=== PATIENT | male | born 1965 | race Hispanic/Latino ===

== ENCOUNTER 2021-01-20 02:40 | Observation (INO) | payer SELFPAY ==
[2021-01-20] MEDS ORDERED: Acetaminophen 500 MG TAB PO PRN (03:09)
[2021-01-20 03:20] VITALS: BMI 30.7
[2021-01-20 06:43] LABS: #Basophils 0.1 thou/uL (0.0-0.2); #Eosinphils 0.2 thou/uL (0.0-0.7); #Lymphocytes 1.8 thou/uL (1.20-3.40); #Monocytes 0.5 thou/uL (0.11-0.59); #Neutrophils 3.1 thou/uL (1.40-6.50); %Basophils 0.9 % (0.0-1.0); %Eosinophils 3.8 % (0.0-10.0); %Lymphocytes 31.6 % (21.0-51.0); %Monocytes 8.9 % (0.0-10.0); %Neutrophils 54.8 % (42.0-75.0); Hemoglobin 8.7 g/dL (14.0-18.0); Mean Corpuscular Hemoglobin 26.5 pg (27.0-31.0); Mean Corpuscular Volume 85.5 fL (78.0-98.0); Mean Platelet Volume 8.2 fL (7.4-10.4); Platelet Count 150 thou/uL (130-400); RBC Distribution Width 18.2 % (11.5-14.5); Red Blood Cell (RBC) Count 3.29 mill/uL (4.70-6.10); White Blood Cell (WBC) Count 5.7 thou/uL (4.8-10.8)
[2021-01-20 06:53] LABS: INR-International Normal Ratio 1.8; Prothrombin Time 20.9 sec (12.0-14.7)
[2021-01-20 07:07] LABS: Anion Gap 7 mmol/L (10-20); BUN (Urea Nitrogen) 10 mg/dL (8.4-25.7); Calc. Creatinine Clearance 130 mL/min (70-130); Calcium 7.7 mg/dL (7.8-10.44); Carbon Dioxide 23 mmol/L (22-29); Chloride 111 mmol/L (98-107); Glucose 94 mg/dL (70-105); Potassium 4.3 mmol/L (3.5-5.1); Sodium 137 mmol/L (136-145)
[2021-01-20] MEDS: Pantoprazole 40 MG VIAL IVP SCH ×2 (09:15→21:17)
[2021-01-20] MEDS: Sodium Chloride 0.9% 1,000 ML IV SCH (11:27)
[2021-01-20 12:42] LABS: SARS-CoV-2 PCR by NAA Not Detected (NotDetected)
[2021-01-21] MEDS: Sodium Chloride 0.9% 1,000 ML IV SCH ×2 (06:12→14:23)
[2021-01-21 06:57] LABS: ALT (SGPT) 21 U/L (8-55); AST (SGOT) 65 U/L (5-34); Alkaline Phosphatase 145 U/L (40-110); Anion Gap 7 mmol/L (10-20); BUN (Urea Nitrogen) 8 mg/dL (8.4-25.7); Calc. Creatinine Clearance 133 mL/min (70-130); Calcium 7.6 mg/dL (7.8-10.44); Carbon Dioxide 24 mmol/L (22-29); Chloride 110 mmol/L (98-107); Globulin 3.6 g/dL (2.4-3.5); Glucose 85 mg/dL (70-105); Iron 14 ug/dL (65-175); Iron Binding Capacity, Total 236 mcg/dL (261-462); Protein, Total 5.6 g/dL (6.0-8.3); Sodium 137 mmol/L (136-145)
[2021-01-21 07:05] LABS: #Eosinphils 0.2 thou/uL (0.0-0.7); #Lymphocytes 1.9 thou/uL (1.20-3.40); #Monocytes 0.6 thou/uL (0.11-0.59); #Neutrophils 2.9 thou/uL (1.40-6.50); %Basophils 0.7 % (0.0-1.0); %Eosinophils 3.3 % (0.0-10.0); %Monocytes 10.4 % (0.0-10.0); %Neutrophils 51.6 % (42.0-75.0); Hemoglobin 8.3 g/dL (14.0-18.0); Mean Corpuscular HGB CONC 31.5 g/dL (32.0-36.0); Mean Corpuscular Hemoglobin 26.9 pg (27.0-31.0); Mean Corpuscular Volume 85.5 fL (78.0-98.0); Mean Platelet Volume 8.9 fL (7.4-10.4); Platelet Count 117 thou/uL (130-400); RBC Distribution Width 18.5 % (11.5-14.5); White Blood Cell (WBC) Count 5.6 thou/uL (4.8-10.8)
[2021-01-21 07:38] LABS: HBCM Index 0.12 S/CO (0-0.79); HBSAg Index 0.21 S/CO (0-0.99); Hep A IgM AB Non-Reactive (NonReactive); Hep A IgM S/CO 0.44 S/CO (0-0.79); Hep B Surf Ag Non-Reactive S/CO (NonReactive); Hep C IgG Ab Non-Reactive (NonReactive); Hep C Index 0.17 S/CO (0-0.79); Hepatitis B Core IgM Abs Non-Reactive (NonReactive)
[2021-01-21] MEDS: Pantoprazole 40 MG VIAL IVP SCH ×2 (08:27→21:38)
[2021-01-21] MEDS ORDERED: PROPOFOL 200 MG/20 ML VIAL ONE (11:26)
[2021-01-21] MEDS ORDERED: Lidocaine 1% PF 5 ML VIAL ONE (11:26)
[2021-01-21] MEDS ORDERED: Promethazine HCl 25 MG/ML VIAL IVPB PRN (11:49)
[2021-01-21] MEDS ORDERED: Promethazine HCl 25 MG/ML VIAL IM PRN (11:49)
[2021-01-21] MEDS ORDERED: Ondansetron HCl/PF 4 MG/2 ML Vial IVP PRN (11:49)
[2021-01-22] MEDS: Sodium Chloride 0.9% 1,000 ML IV SCH ×2 (03:08→14:09)
[2021-01-22 06:59] LABS: #Basophils 0.1 thou/uL (0.0-0.2); #Eosinphils 0.2 thou/uL (0.0-0.7); #Lymphocytes 1.6 thou/uL (1.20-3.40); #Monocytes 0.6 thou/uL (0.11-0.59); #Neutrophils 2.2 thou/uL (1.40-6.50); %Basophils 1.1 % (0.0-1.0); %Lymphocytes 34.4 % (21.0-51.0); %Monocytes 11.9 % (0.0-10.0); %Neutrophils 47.5 % (42.0-75.0); Hemoglobin 8.3 g/dL (14.0-18.0); Mean Corpuscular HGB CONC 32.3 g/dL (32.0-36.0); Mean Corpuscular Hemoglobin 27.6 pg (27.0-31.0); Mean Corpuscular Volume 85.5 fL (78.0-98.0); Mean Platelet Volume 8.7 fL (7.4-10.4); Platelet Count 100 thou/uL (130-400); RBC Distribution Width 18.5 % (11.5-14.5); Red Blood Cell (RBC) Count 2.99 mill/uL (4.70-6.10); White Blood Cell (WBC) Count 4.6 thou/uL (4.8-10.8)
[2021-01-22 07:03] LABS: Anion Gap 9 mmol/L (10-20); BUN (Urea Nitrogen) 8 mg/dL (8.4-25.7); Calc. Creatinine Clearance 133 mL/min (70-130); Calcium 7.5 mg/dL (7.8-10.44); Carbon Dioxide 23 mmol/L (22-29); Chloride 110 mmol/L (98-107); Glucose 106 mg/dL (70-105); Potassium 3.7 mmol/L (3.5-5.1); Sodium 138 mmol/L (136-145)
[2021-01-22] MEDS: Pantoprazole 40 MG VIAL IVP SCH (08:41)
[2021-01-22 15:58] VITALS: BP 149/67; TEMP 98.2
[2021-01-23 16:12] LABS: ANA Symphony (Qualitative) Negative (Negative); ANA Symphony (Quantitative) 0.2 Ratio (< 0.7 Negative); EliA Vaculitis New Method **** NEW METHOD ****; Mitochondrial Ab 0.7 U/mL (<4 Negative); dsDNA IgG Antibody 1.5 IU/mL (<10 Negative)
== END 2021-01-22 18:30 | disposition home or self-care (01) ==
LOC: SURG B 03:03
PROVIDERS: ADMIT Internal Medicine; ATTEND Internal Medicine
PROC: 0DB78ZX Excision of Stomach, Pylorus, Via Natural or Artificial Opening Endoscopic, Diagnostic (ICD-10-PCS; principal; 2021-01-21)
DX: K29.51 Unspecified chronic gastritis with bleeding (principal); K25.4 Chronic or unspecified gastric ulcer with hemorrhage; D62 Acute posthemorrhagic anemia; R60.0 Localized edema; K70.31 Alcoholic cirrhosis of liver with ascites; F10.20 Alcohol dependence, uncomplicated; Z87.891 Personal history of nicotine dependence; Z20.822 Contact with and (suspected) exposure to COVID-19
CPT/HCPCS: 36415; 80048; 80053; 80074; 82105; 82728; 83516; 83540; 83550; 85025; 85610; 86038; 86225; 88305; 88312; 96374; 96376; C9113; G0378; J2704; J7050; U0003; U0005